=== PATIENT | male | born 1960 | race Caucasian/White ===

== ENCOUNTER 2018-10-31 20:32 | Inpatient (IN) | payer OTHER ==
[~2018-10-31] VITALS: Ht 172.7 cm; Wt 90.3 kg
[~2018-10-31 20:32] MED LIST: ACCUNEB SO1.25 MG/1 INH; PREDNISONE50 MG PO; PROAIR RESPICL90 MCG IH; TRAZODONE 150150 M1 PO; TRUVADA1 EAC1 PO
[2018-10-31 20:33] VITALS: BP 137/75
[2018-10-31 21:07] LABS: PCO2 40.2 mmHg (35.0-45.0); PO2 73.3 mmHg (75.0-100.0); pH 7.398 (7.340-7.450)
[2018-10-31 21:08] LABS: ABSOLUTE BASOPHILS 0.1 thou/uL (0.0-0.2); ABSOLUTE EOSINOPHILS 0.7 thou/uL (0.0-0.7); ABSOLUTE LYMPHOCYTES 2.3 thou/uL (0.8-5.3); ABSOLUTE MONOCYTES 0.5 thou/uL (0.0-1.2); ABSOLUTE NEUTROPHILS 3.7 thou/uL (1.6-8.1); BASOPHILS 1.4 %; HEMATOCRIT 42.3 % (42.0-52.0); HEMOGLOBIN 14.8 gm/dL (14.0-18.0); LYMPHOCYTES 31.5 %; MCV 94.4 fL (80.0-100.0); MONOCYTES 7.2 %; MPV 7.4 fl. (7.2-11.1); NUCLEATED RBCS 0 /100WBC; PLATELET COUNT* 267 thou/uL (150-400); POLYS 49.9 %; RBC 4.48 mil/uL (4.50-6.00); RDW-CV 12.6 % (10.5-14.5); WBC 7.4 thou/uL (4.0-11.0)
[2018-10-31 21:08] LABS: BE -0.5 mmol/L (-2 to +3)
[2018-10-31 21:17] LABS: ANION GAP 9 mmol/L (7-16); BUN 17 mg/dL (7-18); CALCIUM 9.2 mg/dL (8.5-10.1); CHLORIDE 104 mmol/L (98-107); CO2 27 mmol/L (21-32); CREATININE 1.1 mg/dL (0.6-1.3); GLUCOSE 153 mg/dL (70-99); POTASSIUM 3.8 mmol/L (3.5-5.1); SODIUM 140 mmol/L (136-145)
[2018-10-31 21:29] LABS: ALBUMIN 3.6 g/dL (3.4-5.0); ALKALINE PHOSPHATASE 80 U/L (46-116); NT-PRO BRAIN NAT PEPTIDE 16 pg/mL (<300); SGOT 31 U/L (15-37); SGPT 40 U/L (30-65); TOTAL BILIRUBIN 0.3 mg/dL (<0.1-1.0); TOTAL PROTEIN 7.2 g/dL (6.4-8.2); TROPONIN-I LEVEL <0.06 ng/mL (<0.06)
[2018-10-31 23:50] VITALS: BP 142/83
[2018-11-01] VITALS: BP 141/82
[2018-11-01 03:55] LABS: HEMATOCRIT 43.1 % (42.0-52.0); HEMOGLOBIN 14.7 gm/dL (14.0-18.0); MCH 32.5 pg (26.0-34.0); MCV 95.4 fL (80.0-100.0); MPV 7.7 fl. (7.2-11.1); RBC 4.52 mil/uL (4.50-6.00); RDW-CV 12.8 % (10.5-14.5); WBC 5.8 thou/uL (4.0-11.0)
[2018-11-01 04:23] LABS: ALBUMIN 3.5 g/dL (3.4-5.0); CALCIUM 9.2 mg/dL (8.5-10.1); CREATININE 1.4 mg/dL (0.6-1.3); POTASSIUM 4.7 mmol/L (3.5-5.1); TOTAL BILIRUBIN 0.2 mg/dL (<0.1-1.0); TOTAL PROTEIN 7.4 g/dL (6.4-8.2)
[2018-11-01 07:50] VITALS: BP 133/88
[2018-11-01] MEDS ORDERED: ISENTRESS400 MG PO (09:58)
--- NOTE | 2018-11-01 14:02 | EKG ---
[place] [address] ELECTROCARDIOGRAM REPORT Name: KAROL MOBLEY JR Room: [address] ADM IN M.R.#: [id number] Admission: 10/31/18 Attend Phys: Tobias Curtis MD Discharge: Date of : 62 Report #: [id number] THIS REPORT FOR: //name// [facility] ED Test Date: 2018-10-31 Test Time: 20:38:17 Pat Name: KAROL DEANJEÚSS Department: Room: [facility] Gender: M Culture Manager: NISSA : 1960 Requested By: Irina Beck Order Number: [id number] MD: Kehinde Mooney Measurements Intervals [place] Rate: 103 P: 72 [place]: 136 QRS: 65 QRSD: 94 T: 61 QT: 337 QTc: 441 Interpretive Statements Sinus tachycardia Low voltage, extremity and precordial leads No previous ECG available for comparison Electronically Signed On 11-01-2018 14:02:22 CDT by Kehinde Mooney [email or web address] <ELECTRONICALLY SIGNED> By: Kehinde Mooney MD, [facility] 11/01/18 1402 37 37 Kehinde Mooney MD, FACC /EPI
--- NOTE | 2018-11-01 15:32 | 2DMMODE ---
[place] [address] 2 D/M-MODE ECHOCARDIOGRAM Name: KAROL MOBLEY JR Room: [address] [place] [facility]#: [id number] Admission: 10/31/18 Attend Phys: Tobias Curtis MD Discharge: Date of : 62 Date of Service: 11/01/18 1532 Report #: [id number] THIS REPORT FOR: //name// APPROVED REPORT Study performed: 11/01/2018 14:01:51 EXAM: Comprehensive 2D, Doppler, and color-flow Echocardiogram Patient Location: In-Patient Room #: [facility] Status: routine BSA: 1.93 HR: 106 bpm BP: 141/82 mmHg Rhythm: NSR Other Information Study Quality: Good Indications Syncope 2D Dimensions IVSd: 10.04 (7-11mm) LVOT Diam: 20.22 (18-24mm) LVDd: 37.87 mm PWd: 10.04 (7-11mm) Ascending Ao: 31.14 (22-36mm) LVDs: 27.67 (25-40mm) Aortic Root: 31.65 mm Volumes Left Atrial Volume (Systole) LA ESV Index: 16.30 mL/m2 Aortic Valve AoV Peak Damion.: 1.55 m/s AO Peak Gr.: 9.64 mmHg LVOT Max P.39 mmHg AO Mean Gr.: 5.66 mmHg LVOT Mean P.57 mmHg LVOT Max V: 1.36 m/s AO V2 VTI: 24.42 cm LVOT Mean V: 0.86 m/s SERGIO (VTI): 2.82 cm2 LVOT V1 VTI: 21.49 cm Mitral Valve E/A Ratio: 0.79 MV Decel. Time: 188.55 ms MV E Max Damion.: 0.71 m/[place] [address] 2 D/M-MODE ECHOCARDIOGRAM Name: KAROL MOBLEY JR Room: [address] IN [facility].#: [id number] Admission: 10/31/18 Attend Phys: Tobias Curtis MD Discharge: Date of : 62 Date of Service: 11/01/18 1532 Report #: [id number] MV PHT: 54.68 ms MVA (PHT): 4.02 cm2 TDI E/Lateral E': 8.88 E/Medial E': 7.10 Medial E' Damion.: 0.10 m/s Lateral E' Damion.: 0.08 m/s Pulmonary Valve PV Peak Damion.: 1.27 m/s PV Peak Gr.: 6.49 mmHg Left Ventricle The left ventricle is normal size. There is normal LV segmental wall motion. There is normal left ventricular wall thickness. Left ventricular systolic function is normal. The left ventricular ejection fraction is within the normal range. LVEF is 65-70%. Grade I - abnormal relaxation pattern. Right Ventricle The right ventricle is normal size. The right ventricular systolic function is normal. Atria The left atrium size is normal. The right atrium size is normal. Aortic Valve The aortic valve is normal in structure. No aortic regurgitation is present. There is no aortic valvular stenosis. Mitral Valve The mitral valve is normal in structure. There is no mitral valve regurgitation noted. No evidence of mitral valve stenosis. Tricuspid Valve The tricuspid valve is normal in structure. Trace tricuspid regurgitation. Unable to assess PA pressure. Pulmonic Valve The pulmonary valve is normal in structure. There is no pulmonic valvular regurgitation. Great Vessels The aortic root is normal in size. IVC is normal in size and collapses >50% [place] [address] 2 D/M-MODE ECHOCARDIOGRAM Name: KAROL MOBLEY JR Room: [address] [place] [facility]#: [id number] Admission: 10/31/18 Attend Phys: Tobias Curtis MD Discharge: Date of : 62 Date of Service: 11/01/18 1532 Report #: [id number] Pericardium There is no pericardial effusion. <Conclusion> The left ventricle is normal size. There is normal left ventricular wall thickness. Left ventricular systolic function is normal. The left ventricular ejection fraction is within the normal range. LVEF is 65-70%. Grade I - abnormal relaxation pattern. The right ventricle is normal size. The left atrium size is normal. The aortic valve is normal in structure. The mitral valve is normal in structure. The tricuspid valve is normal in structure. IVC is normal in size and collapses >50% with inspiration. There is no pericardial effusion. There is normal LV segmental wall motion. <ELECTRONICALLY SIGNED> By: Kehinde Mooney MD, FACC 11/01/18 1532 153 153 Kehinde Mooney MD, FACC /INF
[2018-11-01 16:24] VITALS: BP 99/57
[2018-11-01 20:20] VITALS: BP 114/71
[2018-11-02 00:33] VITALS: BP 107/61
[2018-11-02 04:31] VITALS: BP 109/56
[2018-11-02 05:25] LABS: HEMATOCRIT 40.3 % (42.0-52.0); HEMOGLOBIN 13.8 gm/dL (14.0-18.0); MCH 32.7 pg (26.0-34.0); MCHC 34.2 g/dL (28.0-37.0); MCV 95.6 fL (80.0-100.0); MPV 7.8 fl. (7.2-11.1); RBC 4.22 mil/uL (4.50-6.00); WBC 12.9 thou/uL (4.0-11.0)
[2018-11-02 05:26] LABS: CALCIUM 9.2 mg/dL (8.5-10.1); CREATININE 1.2 mg/dL (0.6-1.3); MAGNESIUM 2.2 mg/dL (1.8-2.4); POTASSIUM 4.4 mmol/L (3.5-5.1)
--- NOTE | 2018-11-02 07:02 | CON ---
[address] [address] CONSULTATION Name: KAROL MOBLEY JR Room: [address] IN .R.#: [id number] Admission: 10/31/18 Attend Phys: Tobias Curtis MD Discharge: Date of : 62 Report #: [id number] THIS REPORT FOR: //name// CC: [facility] physician/PCP Tobias Curtis DATE OF SERVICE: 11/01/2018 INFECTIOUS DISEASE CONSULTATION ATTENDING PHYSICIAN: Tobias Curtis MD REASON FOR EVALUATION: Lower respiratory tract infection. HISTORY OF PRESENT ILLNESS: Chart reviewed, patient examined. This is a 58-year-old man with longstanding history of HIV disease diagnosed in 1986, does have some underlying COPD formally diagnosed within the last 2-3 years, had progressive dyspnea over the course of last several days prior to admission, associated cough, it was notable that he was wheezing and had run out of his Advair inhaler, normally [facility], not clear that he had any fevers. Denies chills. His appetite has been generally fair. No change in weight. Denies any significant gastrointestinal-related complaints. It is not clear that he has had any significant option opportunistic infections. He reports an excellent CD4 count as well as a non-detectable viral load for last several years. Initial evaluation included a chest x-ray, which showed no acute process. ABGs; he was borderline hypoxemic with pO2 of 73 on 2 liters and pH 7.398. White count was in normal range. Lactic acid is 1.2. Blood cultures are sterile thus far. He was empirically started on antimicrobials with ceftriaxone and azithromycin. ALLERGIES: Listed to SULFA. CURRENT MEDICATIONS: Include raltegravir, Truvada, enoxaparin, methylprednisolone, ipratropium and albuterol inhaler, budesonide, azithromycin, benzonatate and p.r.n. analgesics and antiemetics. PAST MEDICAL HISTORY: As described above, longstanding HIV and COPD. SOCIAL HISTORY: Smokes cigarettes. No ethanol. No current illicit drug use. FAMILY HISTORY: Noncontributory. REVIEW OF SYSTEMS: Otherwise unremarkable with the exception 10-point review of systems as noted above. PHYSICAL EXAMINATION: [place] [address] CONSULTATION Name: KAROL MOBLEY JR Room: [address]#: [id number] Admission: 10/31/18 Attend Phys: Tobias Curtis MD Discharge: Date of : 62 Report #: [id number] GENERAL: He is pleasant, alert and cooperative. He appears relatively comfortable. He does have intermittent cough. He is not on supplemental oxygen at this point, appears reasonably well nourished. VITAL SIGNS: Temperature 98.2, pulse 110, respirations 20, blood pressure 133/88. SKIN: Warm, dry. No rashes. HEENT: Normocephalic. Extraocular muscles intact. NECK: Supple. LUNGS: Few scattered crackles at the bases bilaterally. HEART: Regular, tachycardic. I do not appreciate any murmur. ABDOMEN: Mildly protuberant, soft. There are no peritoneal signs. It is not tender. EXTREMITIES: Lower extremities without significant edema. GENITOURINARY: Deferred. RECTAL: Deferred. LABORATORY DATA: As described above. Blood cultures are sterile thus far. Electrolytes; sodium 139, potassium 4.7, chloride 102, bicarbonate is 23, anion gap of 14, BUN and creatinine 19 and 1.4 and glucose was 246. LFTs unremarkable. Albumin of 3.5. Total protein is 7.4. CBC; white count of 5.8, H and H 14.7 and 43.1 and platelets 272. Lactic acid 1.2. ASSESSMENT AND PLAN: Dyspnea, complicated by cough. At this point, it is not entirely clear as to the etiology, certainly at risk for acquired type infections. At this point, we would favor bronchitis as opposed to pneumonia based on the evaluation thus far. We will continue empiric therapy with ceftriaxone and azithromycin. We will have to monitor expectantly. At this point, he is not overtly toxic and not requiring supplemental oxygen. We will wait additional results. We will see how he does clinically over the next 24-48 hours, likely transition to oral antibiotics fairly quickly. <ELECTRONICALLY SIGNED> By: oSlo Terrazas MD 11/02/18 0702 1514 [id number] Terrazas MD /nt
[2018-11-02 08:00] VITALS: BP 128/84
--- NOTE | 2018-11-02 09:28 | CON ---
[address] [address] CONSULTATION Name: KAROL MOBLEY JR Room: [address] IN .R.#: [id number] Admission: 10/31/18 Attend Phys: Tobias Curtis MD Discharge: Date of : 62 Report #: [id number] THIS REPORT FOR: //name// CC: [facility] physician/PCP Tobias Curtis ATTENDING PHYSICIAN: Dr. Rashid. REASON FOR CONSULTATION: COPD exacerbation and respiratory failure. HISTORY OF PRESENT ILLNESS: This is a 58-year-old male patient with history of HIV. His most recent care was at the [facility]. He told me he has chronic obstructive pulmonary disease diagnosed a year or so ago. Since then, he had 4 admissions to 4 different hospitals for exacerbation. He continues to smoke. According to him, he smoked around 20-22 years. He has Advair at home, which he ran out of around couple of weeks ago and he has nebulizer and albuterol inhaler at home. His symptoms started 3 weeks ago with increasing shortness of breath and cough. The cough is so distressing that causing him some times to lose consciousness and the cough comes in spasms. These symptoms are associated with increasing wheezes, although he has no sputum production. He has no asthma as a child, no family history of asthma, although he has family history of chronic obstructive pulmonary disease. Unfortunately, he continues to smoke. He denied any sick contacts, he said he lives alone. He reported drawn. No runny nose, no sore throat. He has no chest pain, no palpitation, no lower extremity edema. PAST MEDICAL HISTORY: History of HIV. CD4 count not known. Viral load not known. ALLERGIES: SULFA. HOME MEDICATIONS: Albuterol and DuoNeb. He is on Truvada and he ran out of his Advair. FAMILY HX: reviewed with patient and noncontributory, no family history of Asthma PAST SURGICAL HISTORY: No major surgery. SOCIAL HISTORY: He continues to smoke around half a pack per day for at least 20-25 years and he denied history of alcohol use or drug abuse. REVIEW OF SYSTEMS: CONSTITUTIONAL: He denied fever, chills, change in appetite EYES: He denied any redness, lacrimation, and floaters. ORAL CAVITY: He denied any ulcers, difficulty swallowing, dysphagia, and coughing with meals. CARDIOVASCULAR: He denied any chest pain, palpitations, lower extremity edema, [place] [address] CONSULTATION Name: KAROL MOBLEY JR Room: [address]#: [id number] Admission: 10/31/18 Attend Phys: Tobias Curtis MD Discharge: Date of : 62 Report #: [id number] but he had syncopal episodes related to the severe cough spasm. GASTROINTESTINAL: He denied any change in bowel habits, bleeding from any orifice. Denied any diarrhea, nausea, or vomiting. GENITOURINARY: He denied any dysuria, frequency, or urgency. MUSCULOSKELETAL: He denied any joint pain, deformity or joint swelling. SKIN: He denied any rash. NEUROLOGIC: He denied any focal weakness, tingling sensation. IMMUNOLOGIC: He denied any bumps or lumps or enlarged lymph node. All systems reviewed with the patient and negatives as mentioned above. PHYSICAL EXAMINATION: VITAL SIGNS: During my visit, he was on 2 liters oxygen, O2 saturation 95%, blood pressure 133/88, breathing 20 times a minute, pulse ox 100, and temperature 36.8. HEAD: Normocephalic, atraumatic. EYES: Pupils reactive to light. ORAL CAVITY: Moist mucous membrane. Mallampati of 2. NECK: Full range of movement. Trachea central. Externally, looks normal. NASAL CAVITY: Patent passages. CHEST: Diminished air movement with prolonged expiratory phase with active wheezes. No tenderness to chest palpation. HEART: S1, S2, no murmur. ABDOMEN: Soft, lax, and nontender. EXTREMITIES: Lower extremity, no edema noted. SKIN: Normal for age and race. NEUROLOGIC: Moving 4 extremities spontaneously. No focal weakness. PSYCHIATRIC: Mood and affect slightly anxious. LYMPHATICS: No palpable lymph node. LABORATORY DATA: White blood count 7.4, hemoglobin 14.8 and platelets of 267. ABG 7.39. This was done on 2 liter oxygen. Creatinine of 1.1 with BUN of 17, potassium 3.8, and sodium 140. Urine drug screen is pending. His chest x-ray did not show acute infiltrate. CURRENT MEDICATIONS: Reviewed including steroids every 6 hours, Brovana, Pulmicort, DVT chemical prophylaxis, azithromycin, and symptomatic cough management. IMPRESSION: 1. Acute respiratory failure. 2. Chronic obstructive pulmonary disease exacerbation. 3. Severe bronchospasm. 4. Cough syncope. 5. HIV, unknown CD4 count or viral load. PLAN: At this point, we are trying to get some records from the [facility] [place] [address] CONSULTATION Name: KAROL MOBLEY JR Room: [address] IN M.R.#: [id number] Admission: 10/31/18 Attend Phys: Tobias Curtis MD Discharge: Date of : 62 Report #: [id number] The patient told me he had a PFT a year or so ago but at that time, he was in exacerbation. [facility] At this point, we will continue the patient on the steroids, symptomatic cough management and scheduled bronchodilator in addition to inhaled steroids and Brovana. Smoking cessation is important to control his symptoms. He told me he had frequent exacerbations in the last year or so with at least 3-4 hospitalizations. He ran out of his Advair couple of weeks ago, which could be a contributing factor to his exacerbation. Thank you for the consult. We will follow along with you. <ELECTRONICALLY SIGNED> By: Kalli Diaz MD 11/02/18 0928 1158 [id number] Diaz MD /nt
[2018-11-02 15:40] VITALS: BP 124/73
[2018-11-03 06:09] VITALS: BP 116/65
[2018-11-03 12:00] VITALS: BP 122/73
[2018-11-03 12:47] LABS: URINE BILIRUBIN NEGATIVE (Negative); URINE BLOOD NEGATIVE (Negative); URINE CLARITY CLEAR; URINE COLOR YELLOW; URINE GLUCOSE-RANDOM 3+ (Negative); URINE KETONES NEGATIVE (Negative); URINE LEUKOCYTES-REFLEX NEGATIVE (Negative); URINE NITRITE-REFLEX NEGATIVE (Negative); URINE PROTEIN NEGATIVE (Negative); URINE SPECIFIC GRAVITY 1.015 (1.005-1.030); URINE UROBILINOGEN 0.2 E.U./dl (0.2-1.0)
[2018-11-03 12:54] LABS: AMP/METHAMP Negative (Negative); BARBITURATES Negative (Negative); BENZODIAZEPINES Negative (Negative); COCAINE Negative (Negative); METHADONE Negative (Negative); OPIATES Negative (Negative); PCP Negative (Negative); THC Negative (Negative)
[2018-11-03 16:00] VITALS: BP 122/80
[2018-11-03 20:20] VITALS: BP 139/77
[2018-11-04 07:44] VITALS: BP 102/65
[2018-11-04 13:39] VITALS: BP 149/87
[2018-11-04 16:07] VITALS: BP 143/99
[2018-11-04 17:09] LABS: HIV-1 PCR log10 1.301 (())
[2018-11-04 20:10] VITALS: BP 143/94
[2018-11-05] VITALS: BP 93/42
[2018-11-05 07:50] VITALS: BP 124/82
[2018-11-05 12:16] VITALS: BP 178/109
[2018-11-05 16:10] VITALS: BP 124/78
[2018-11-05 20:40] VITALS: BP 124/74
[2018-11-06 07:45] VITALS: BP 141/87
[2018-11-06 16:16] VITALS: BP 120/80
[2018-11-07 03:50] VITALS: BP 110/71
[2018-11-07 05:17] LABS: HEMOGLOBIN 14.3 gm/dL (14.0-18.0); MCH 33.1 pg (26.0-34.0); MCHC 34.8 g/dL (28.0-37.0); MCV 95.2 fL (80.0-100.0); MPV 8.2 fl. (7.2-11.1); RBC 4.31 mil/uL (4.50-6.00); RDW-CV 12.8 % (10.5-14.5); WBC 10.1 thou/uL (4.0-11.0)
[2018-11-07 05:35] LABS: ALBUMIN 3.2 g/dL (3.4-5.0); CALCIUM 8.4 mg/dL (8.5-10.1); CREATININE 1.1 mg/dL (0.6-1.3); PHOSPHORUS* 1.9 mg/dL (2.5-4.9); POTASSIUM 4.4 mmol/L (3.5-5.1)
[2018-11-07 07:58] VITALS: BP 135/85
[2018-11-07 08:48] VITALS: BP 135/85
[2018-11-07] MEDS ORDERED: BENZONATATE100 MG PO (11:17)
[2018-11-07] MEDS ORDERED: PREDNISONE 20 M20 MG PO (11:17)
[2018-11-07] MEDS ORDERED: PULMICORT0.5 MG/2 M INH (11:17)
[2018-11-07] MEDS ORDERED: OMEPRAZOLE 20 M20 M1 PO (11:17)
[2018-11-07] MEDS ORDERED: IPRAT-ALBUT 0.5-3 ML INH (11:17)
[2018-11-07] MEDS ORDERED: BROVANA15 MCG/2 M INH (11:17)
[2018-11-07] MEDS ORDERED: CEFDINIR300 MG PO (11:17)
[2018-11-07] MEDS ORDERED: METFORMIN HCL500 MG PO (11:25)
[2018-11-07 11:42] VITALS: BP 135/85
[2018-11-07] MEDS ORDERED: SYMBICORT160 MCG/4. INH (12:39)
[2018-11-07 23:05] LABS: GLYCOHEMOGLOBIN (HGB A1C) 5.9 % (4.8-5.6)
== END 2018-11-07 14:10 | disposition home health service (06) | DRG 189 ==
LOC: M.ERS 20:32 → M.2W 21:23 → M.ORTHSURG 21:23 → M.TBA-ER 21:23 → M.ORTHSURG 11-01 00:03 → M.2W 11-01 11:20
PROVIDERS: Internal Medicine; Nurse Practitioner Family; ADMIT Family Medicine
DX: J96.00 Acute respiratory failure, unspecified whether with hypoxia or hypercapnia (principal); J44.1 Chronic obstructive pulmonary disease with (acute) exacerbation; F17.210 Nicotine dependence, cigarettes, uncomplicated; J45.909 Unspecified asthma, uncomplicated; J22 Unspecified acute lower respiratory infection; R73.9 Hyperglycemia, unspecified; T38.0X5A Adverse effect of glucocorticoids and synthetic analogues, initial encounter; N18.2 Chronic kidney disease, stage 2 (mild); Z88.6 Allergy status to analgesic agent; Z71.6 Tobacco abuse counseling; Z79.899 Other long term (current) drug therapy; Y92.89 Other specified places as the place of occurrence of the external cause